=== PATIENT | female | born 1980 | race Caucasian/White ===

== ENCOUNTER → 2016-10-26 | Outpatient (REF) | payer BC ==
[~2016-10-26] MED LIST: ALBU17IN2 INH; ASTELIN; FLON1SPR; MULT1TAB10 PO; pulmicort INH
== END ==
LOC: M LAB REF 18:45
PROVIDERS: ATTEND Advanced Practice Midwife
DX: Z01.419 Encounter for gynecological examination (general) (routine) without abnormal findings (principal); Z11.51 Encounter for screening for human papillomavirus (HPV); R87.610 Atypical squamous cells of undetermined significance on cytologic smear of cervix (ASC-US)

== ENCOUNTER 2017-03-23 11:28 | Day surgery (SDC) | payer BC ==
[~2017-03-23 11:28] MED LIST changes: -ALBU17IN2 INH; -ASTELIN; -FLON1SPR; +KETOROLAC 60 MG/2 ML VIAL (J1885) As Ordered; +LIDOCAINE 2% INJ 100 MG/5 ML SDV (FOR ANES.) As Ordered; +MIDAZOLAM INJ 2 MG/2 ML VIAL (J2250) As Ordered; -MULT1TAB10 PO; +ONDANSETRON 4MG/2ML VIAL (J2405) As Ordered; +PROPOFOL 200 MG/20 ML VIAL As Ordered; +dexameTHASONE 4 MG/ML 1ML VIAL (J1100) As Ordered; +fentaNYL 100 MCG/2 ML INJECTION (J3010) As Ordered; -pulmicort INH
[2017-03-23 12:20] LABS: HEMATOCRIT 37.2 % (36.0-47.0); MEAN CORPUSCULAR HEMOGLOBIN 33.2 pg (27.0-33.0); MEAN CORPUSCULAR HGB CONC 34.9 g/dl (32.0-36.5); MEAN CORPUSCULAR VOLUME 95.1 fl (80.0-96.0); PLATELET COUNT, AUTOMATED 224 10^3/uL (150-450); RED BLOOD COUNT 3.91 10^6/uL (4.00-5.40); RED CELL DISTRIBUTION WIDTH 11.9 % (11.5-14.5); WHITE BLOOD COUNT 6.3 10^3/uL (4.0-10.0)
[2017-03-23] MEDS: DOXYCYCLINE HYCLATE 100 MG in D5W MINI-BAG PLUS 100 ML IV (12:44)
[2017-03-23] MEDS: SILVER NITRATE APPLICATOR As Ordered (14:17)
[2017-03-23] MEDS ORDERED: ONDANSETRON 4MG/2ML VIAL (J2405) As Ordered (14:55)
[2017-03-23] MEDS: ONDANSETRON 4MG/2ML VIAL (J2405) IV (15:00)
[2017-03-23] MEDS ORDERED: LR 1,000 ML IV ×2 (15:15)
[2017-03-23] MEDS ORDERED: fentaNYL 100 MCG/2 ML INJECTION (J3010) IV (15:15)
[2017-03-23] MEDS: DOXYCYCLINE HYCLATE 100 MG TAB PO (15:57)
== END 2017-03-23 16:13 | disposition home or self-care (01) ==
LOC: M SDC 11:28
DX: O02.1 Missed abortion (principal); J45.909 Unspecified asthma, uncomplicated; Z91.018 Allergy to other foods
CPT/HCPCS: 59820

== ENCOUNTER → 2017-05-05 | Outpatient (CLI) | payer BC ==
[2017-05-05 12:51] LABS: THYROID STIMULATING HORMONE 0.937 uIU/ML (0.358-3.740)
[2017-05-07 09:32] LABS: LUTEINIZING HORMONE 5.3 mIU/mL
[2017-05-07 09:39] LABS: FOLLICLE STIMULATING HORMONE 10.9 mIU/mL
== END ==
LOC: M LAB 11:44
DX: N96 Recurrent pregnancy loss (principal)
CPT/HCPCS: 83001

== ENCOUNTER → 2018-07-03 | Outpatient (REF) | payer BC ==
[~2018-07-03] MED LIST changes: +ALBU17IN2 INH; +ASTELIN; +COLA100C5 PO; +FLON1SPR; +IBUP-1022 PO; -KETOROLAC 60 MG/2 ML VIAL (J1885) As Ordered; -LIDOCAINE 2% INJ 100 MG/5 ML SDV (FOR ANES.) As Ordered; -MIDAZOLAM INJ 2 MG/2 ML VIAL (J2250) As Ordered; +MULT1TAB10 PO; -ONDANSETRON 4MG/2ML VIAL (J2405) As Ordered; +OXYC1TAB23 PO; -PROPOFOL 200 MG/20 ML VIAL As Ordered; -dexameTHASONE 4 MG/ML 1ML VIAL (J1100) As Ordered; -fentaNYL 100 MCG/2 ML INJECTION (J3010) As Ordered; +pulmicort INH
== END ==
LOC: M SFHCPLAZ 10:06
PROVIDERS: ATTEND Dermatology
DX: D22.4 Melanocytic nevi of scalp and neck (principal)

== ENCOUNTER → 2018-11-29 | Outpatient (REF) | payer BC | LOC: M SFHCPLAZ 19:12 | PROVIDERS: ATTEND Dermatology | DX: D22.61 Melanocytic nevi of right upper limb, including shoulder (principal); C44.319 Basal cell carcinoma of skin of other parts of face; L28.1 Prurigo nodularis ==

== ENCOUNTER → 2019-03-03 | Outpatient (REF) | payer BC | LOC: M LAB REF 18:14 | PROVIDERS: ATTEND Dermatology | DX: D49.2 Neoplasm of unspecified behavior of bone, soft tissue, and skin (principal) ==

== ENCOUNTER → 2019-04-03 | Outpatient (REF) | payer BC | LOC: M LAB REF 10:06 | PROVIDERS: ATTEND Dermatology | DX: D49.2 Neoplasm of unspecified behavior of bone, soft tissue, and skin (principal) ==

== ENCOUNTER → 2019-12-16 | Outpatient (REF) | payer BC ==
[~2019-12-16] MED LIST changes: +AZEL1SPR3; +FLUT11IN; +FLUTISP
== END ==
LOC: M PLALAB 10:30
PROVIDERS: ATTEND Obstetrics & Gynecology
DX: O26.21 Pregnancy care for patient with recurrent pregnancy loss, first trimester (principal)

== ENCOUNTER → 2019-12-18 | Outpatient (REF) | payer BC | LOC: M PLALAB 09:03 | PROVIDERS: ATTEND Obstetrics & Gynecology | DX: O26.21 Pregnancy care for patient with recurrent pregnancy loss, first trimester (principal) ==

== ENCOUNTER → 2019-12-30 | Outpatient (CLI) | payer BC | LOC: M LABSMTC 10:03 | PROVIDERS: ATTEND Anesthesiology | DX: Z01.812 Encounter for preprocedural laboratory examination (principal); Z20.828 Contact with and (suspected) exposure to other viral communicable diseases | CPT/HCPCS: C9803; U0002 ==

== ENCOUNTER 2019-12-31 14:58 | Day surgery (SDC) | payer BC ==
[~2019-12-31] VITALS: Ht 157.5 cm; Wt 54.0 kg
[~2019-12-31 14:58] MED LIST changes: +DOXYCYCLINE HYCLATE 100 MG in D5W MINI-BAG PLUS 100 ML IV SCH; +LR 1,000 ML IV ONE
[2019-12-31 15:50] LABS: HEMATOCRIT 39.3 % (36.0-47.0); HEMOGLOBIN 13.4 g/dl (12.0-15.5); MEAN CORPUSCULAR HEMOGLOBIN 32.5 pg (27.0-33.0); MEAN CORPUSCULAR HGB CONC 34.1 g/dl (32.0-36.5); MEAN CORPUSCULAR VOLUME 95.4 fl (80.0-96.0); PLATELET COUNT, AUTOMATED 193 10^3/uL (150-450); RED BLOOD COUNT 4.12 10^6/uL (4.00-5.40); WHITE BLOOD COUNT 6.2 10^3/uL (4.0-10.0)
[2019-12-31] MEDS ORDERED: MIDAZOLAM INJ 2MG/2ML VIAL (J2250 PER 1MG) As Ordered ONE (17:19)
[2019-12-31] MEDS ORDERED: DESFLURANE 240 ML INHALANT As Ordered ONE (17:19)
[2019-12-31] MEDS ORDERED: KETOROLAC 60MG 2ML VIAL As Ordered ONE (17:19)
[2019-12-31] MEDS ORDERED: ONDANSETRON 4MG/2ML VIAL As Ordered ONE (17:19)
[2019-12-31] MEDS ORDERED: dexameTHASONE 4 MG/ML 1ML VIAL (J1100 PER 1MG) As Ordered ONE (17:19)
[2019-12-31] MEDS ORDERED: METOCLOPRAMIDE INJ 10MG/2ML VIAL (J2765 PER 1) As Ordered ONE (17:19)
[2019-12-31] MEDS ORDERED: fentaNYL 100 MCG/2 ML INJECTION (J3010) As Ordered ONE (17:19)
[2019-12-31] MEDS ORDERED: LIDOCAINE 2% 100MG/5ML SDV (FOR ANES.) As Ordered ONE (17:19)
[2019-12-31] MEDS ORDERED: propofoL 200 MG/20 ML VIAL As Ordered ONE (17:19)
[2019-12-31] MEDS ORDERED: SILVER NITRATE APPLICATOR As Ordered ONE (17:32)
[2019-12-31] MEDS ORDERED: KETOROLAC 30 MG/ML 1ML VIAL IV PRN (17:35)
--- NOTE | 2019-12-31 17:57 | ROOPDOC ---
[facility] Report Of Operation Report of Operation DATE OF PROCEDURE: 12/31/2019 PREPROCEDURE DIAGNOSES: First trimester miscarriage, missed . POSTPROCEDURE DIAGNOSES: Same. PROCEDURE: Suction D&C. SURGEON: Santana Altamirano DO FACOG [employer] ASSOCIATE: none ANESTHESIA: General via LMA ESTIMATED BLOOD LOSS: Approximately 100 mL. IV FLUIDS REPLACED: 600 mL LR UOP: in and out cath, 100 mL COMPLICATIONS: none. SPECIMENS: products of conception, intrauterine tissue. PREOPERATIVE / PROPHYLACTIC ANTIBIOTIC: Doxycycline 100mg IV x1. INTRAOPERATIVE FINDINGS/REMARKS: Uterus sounded to 8 cm. Endo metrial/intrauterine tissue grossly resembled products of conception. DESCRIPTION OF PROCEDURE: The patient was counseled, consented on the risks, benefits, indications and alternatives procedure. Informed consent was obtained. She was taken to the operating room with an IV running and placed on the operating table in dorsal supine position. Gen. anesthesia was administered and the airway was secured without any difficulty. She was prepared and draped in the normal sterile fashion. She was placed in the high lithotomy position. A time out was performed per protocol. The bladder was drained with a sterile in and out catheter. Sterile speculum was placed with good visualization of the cervix. The cervix was grasped with a single-tooth tenaculum at the anterior lip and downward traction was applied. The cervix was sequentially dilated with Gaetano dilators up to a #20. A size 8 curved Vacurette was placed trans-cervically into the intrauterine cavity. Suction was activated. Tissue and blood return was consistent with products of conception. After removal of the Vacurette, a sharp curettage was performed with minimal tissue and blood return. Minimal bleeding from the cervical os was noted. The patient's vitals were normal and stable. The decision was made to conclude the procedure. Single-tooth tenaculum was removed from the cervix and the tenaculum sites were noted to be hemostatic. Again, minimal bleeding from the cervical os was noted. All instruments were removed from the vagina. Sponge and instrument counts were correct per protocol. The patient was transferred to the PACU in good and stable condition. Santana Altamirano DO FACOG. SANTANA ALTAMIRANO DO Dec 31, 2019 17:57
[2019-12-31] MEDS ORDERED: fentaNYL 100 MCG/2 ML INJECTION (J3010) IV PRN (18:15)
[2019-12-31] MEDS ORDERED: LR 1,000 ML IV SCH ×2 (18:15)
[2019-12-31] MEDS ORDERED: METOCLOPRAMIDE INJ 10MG/2ML VIAL (J2765 PER 1) IV PRN (18:15)
[2019-12-31] MEDS ORDERED: ONDANSETRON 4MG/2ML VIAL IV PRN (18:15)
[2019-12-31] MEDS ORDERED: oxyCODONE 5MG TAB PO PRN (18:15)
[2019-12-31] MEDS ORDERED: DOXYCYCLINE HYCLATE 100MG TABLET PO ONE (19:00)
[2019-12-31 19:30] VITALS: BP 122/74
[2019-12-31] MEDS ORDERED: OXYC1TAB23 PO (20:07)
== END 2019-12-31 19:30 | disposition home or self-care (01) ==
LOC: M SDC 14:58
PROVIDERS: ATTEND Obstetrics & Gynecology
DX: O02.1 Missed abortion (principal); Z91.010 Allergy to peanuts; Z79.899 Other long term (current) drug therapy
CPT/HCPCS: 36415; 59820; 85027; 86850; 86900; 86901; 88305; J1100; J1885; J2250; J2405; J2765; J3010

== ENCOUNTER → 2020-12-31 | Outpatient (CLI) | payer BC ==
[~2020-12-31] MED LIST changes: -DOXYCYCLINE HYCLATE 100 MG in D5W MINI-BAG PLUS 100 ML IV SCH; -LR 1,000 ML IV ONE
[2020-12-31 10:19] LABS: BASO % 0.7 % (0.0-1.0); EOS # 0.1 10^3/uL (0.0-0.5); EOS % 1.7 % (0.0-3.0); HEMATOCRIT 43.8 % (36.0-47.0); HEMOGLOBIN 14.8 g/dl (12.0-15.5); LYMPH % 22.8 % (24.0-44.0); MEAN CORPUSCULAR HEMOGLOBIN 33.5 pg (27.0-33.0); MEAN CORPUSCULAR HGB CONC 33.8 g/dl (32.0-36.5); MEAN CORPUSCULAR VOLUME 99.1 fl (80.0-96.0); MONO # 0.4 10^3/uL (0.0-0.8); MONO % 9.5 % (2.0-8.0); NEUTROPHILS # 2.7 10^3/uL (1.5-8.5); NEUTROPHILS % 65.1 % (36.0-66.0); PLATELET COUNT, AUTOMATED 207 10^3/uL (150-450); RED BLOOD COUNT 4.42 10^6/uL (4.00-5.40); WHITE BLOOD COUNT 4.2 10^3/uL (4.0-10.0)
[2020-12-31 10:52] LABS: BLOOD UREA NITROGEN 13 MG/DL (7-18); CARBON DIOXIDE LEVEL 27 MEQ/L (21-32); CHLORIDE LEVEL 109 MEQ/L (98-107); CREATININE FOR GFR 0.68 MG/DL (0.55-1.30); GLOMERULAR FILTRATION RATE > 60.0 (>58); GLUCOSE, FASTING 94 MG/DL (70-100); POTASSIUM SERUM 4.3 MEQ/L (3.5-5.1); SODIUM LEVEL 140 MEQ/L (136-145)
[2020-12-31 10:53] LABS: ALBUMIN 4.2 GM/DL (3.2-5.2); ALT/SGPT 45 U/L (12-78); BILIRUBIN,TOTAL 0.7 MG/DL (0.2-1.0); CALCIUM LEVEL 9.4 MG/DL (8.5-10.1); CHOLESTEROL LEVEL 191 MG/DL (<200); CHOLESTEROL RISK RATIO 3.537 (<5); FREE T4 0.97 NG/DL (0.76-1.46); HDL CHOLESTEROL 54 MG/DL (>40); LDL CHOLESTEROL 109 MG/DL (<100); NON-HDL-C 137 MG/DL; TOTAL PROTEIN 7.3 GM/DL (6.4-8.2); TRIGLYCERIDES LEVEL 139 MG/DL (<150)
== END ==
LOC: M PLALAB 08:10
PROVIDERS: ATTEND Nurse Practitioner Family
DX: Z00.00 Encounter for general adult medical examination without abnormal findings (principal)

== ENCOUNTER → 2021-02-16 | Outpatient (REF) | payer BC | LOC: M SFHCWAGY 17:16 | PROVIDERS: ATTEND Nurse Practitioner Women's Health | DX: Z12.4 Encounter for screening for malignant neoplasm of cervix (principal); Z01.419 Encounter for gynecological examination (general) (routine) without abnormal findings ==

== ENCOUNTER → 2021-12-26 | Outpatient (REF) | payer BC | LOC: M SFHCDERM 17:20 | PROVIDERS: ATTEND Physician Assistant | DX: D23.39 Other benign neoplasm of skin of other parts of face (principal) ==

== ENCOUNTER → 2023-11-14 | Outpatient (REF) | payer BC, OTHER ==
[~2023-11-14] MED LIST changes: -FLUT11IN; +FLUT12AE6
[2023-11-17 11:57] LABS: HPV APTIMA Not Detected (Not Detected)
== END ==
LOC: M SFHCWAGY 15:14
PROVIDERS: ATTEND Nurse Practitioner Family
DX: Z12.4 Encounter for screening for malignant neoplasm of cervix (principal)

== ENCOUNTER → 2024-10-01 | Outpatient (CLI) | payer OTHER | LOC: M PLALAB 14:50 | PROVIDERS: ATTEND Nurse Practitioner Family | DX: T78.05XD Anaphylactic reaction due to tree nuts and seeds, subsequent encounter (principal) ==